=== PATIENT | female | born 1985 | race Two or more races ===

== ENCOUNTER 2021-07-31 07:43 | Outpatient (CLI) | payer OTHER | END 2021-07-31 07:47 | disposition home or self-care (01) | LOC: LAB 07:43 | PROVIDERS: ATTEND Obstetrics & Gynecology | DX: Z34.03 Encounter for supervision of normal first pregnancy, third trimester (principal) ==

== ENCOUNTER 2021-11-26 10:30 | Outpatient (CLI) | payer OTHER | END 2021-11-26 10:39 | disposition home or self-care (01) | LOC: LAB 10:30 | DX: Z11.3 Encounter for screening for infections with a predominantly sexual mode of transmission (principal); N34.1 Nonspecific urethritis; A54.9 Gonococcal infection, unspecified; B20 Human immunodeficiency virus [HIV] disease; E11.9 Type 2 diabetes mellitus without complications; E30.0 Delayed puberty; E78.00 Pure hypercholesterolemia, unspecified; N39.0 Urinary tract infection, site not specified ==

== ENCOUNTER 2022-01-29 14:56 | Outpatient (CLI) | payer OTHER | END 2022-01-29 14:58 | disposition home or self-care (01) | LOC: LAB 14:56 | PROVIDERS: ATTEND General Practice | DX: Z11.1 Encounter for screening for respiratory tuberculosis (principal); Z11.3 Encounter for screening for infections with a predominantly sexual mode of transmission; Z01.84 Encounter for antibody response examination; Z11.59 Encounter for screening for other viral diseases ==